=== PATIENT | female | born 1975 | race African-American/Black ===

== ENCOUNTER 2019-06-06 16:32 | Emergency (ER) | payer SELFPAY ==
[~2019-06-06] VITALS: Ht 149.9 cm; Wt 89.0 kg
[~2019-06-06 16:32] MED LIST: ALBUTEROL
[2019-06-06] MEDS ORDERED: SODIUM CHLORIDE 0.9% 1,000 ML IV ONE (23:11)
[2019-06-06 23:50] LABS: BASOPHILS % 0.7 % (0.0-2.0); EOSINOPHILS % 2.1 % (0.0-5.0); HEMATOCRIT. 37.1 % (36.0-48.0); HEMOGLOBIN. 12.6 g/dL (12.0-16.0); LYMPHOCYTES % 35.4 % (20.0-50.0); MEAN CORPUSCULAR HEMOGLOBIN 31.8 pg (28.0-32.0); MEAN CORPUSCULAR VOLUME 93.6 fL (81.0-99.0); MEAN PLATELET VOLUME 7.7 fl (7.4-10.4); MONOCYTES % 11.9 % (2.0-8.0); NEUTROPHILS % 49.9 % (40.0-76.0); PLATELET 371 x1000/uL (130-400); RED BLOOD CELL COUNT 3.97 mill/uL (4.2-5.4); RED CELL DISTRIBUTION WIDTH 13.9 % (11.6-14.6)
[2019-06-06 23:59] LABS: CHLORIDE 105 mEq/L (98-107)
[2019-06-07 04:05] VITALS: BP 120/76
== END 2019-06-07 07:06 | disposition home or self-care (01) ==
LOC: ER 16:32
DX: R42 Dizziness and giddiness (principal); R51 Headache; J45.909 Unspecified asthma, uncomplicated; F17.200 Nicotine dependence, unspecified, uncomplicated
CPT/HCPCS: 36415; 71045; 80053; 81025; 84484; 85025; 93005; 96360; 99284; 99406; J7030

== ENCOUNTER 2019-09-08 08:48 | Emergency (ER) | payer SELFPAY ==
[~2019-09-08] VITALS: Ht 149.9 cm; Wt 101.0 kg
[2019-09-08 09:05] VITALS: BP 141/99
== END 2019-09-08 10:08 | disposition home or self-care (01) ==
LOC: ER 08:57
DX: M54.6 Pain in thoracic spine (principal); J45.909 Unspecified asthma, uncomplicated; F17.210 Nicotine dependence, cigarettes, uncomplicated; Z91.018 Allergy to other foods; W01.0XXA Fall on same level from slipping, tripping and stumbling without subsequent striking against object, initial encounter; Y93.89 Activity, other specified; Y92.010 Kitchen of single-family (private) house as the place of occurrence of the external cause
CPT/HCPCS: 99283

== ENCOUNTER 2019-12-05 11:02 | Emergency (ER) | payer SELFPAY ==
[~2019-12-05] VITALS: Ht 149.9 cm; Wt 101.0 kg
[2019-12-05 11:17] VITALS: BP 101/64
[2019-12-05] MEDS ORDERED: IBUPROFEN 800MG TABLET PO ONE (12:00)
== END 2019-12-05 13:07 | disposition home or self-care (01) ==
LOC: ER 12:41
DX: S70.01XA Contusion of right hip, initial encounter (principal); J45.909 Unspecified asthma, uncomplicated; Z91.018 Allergy to other foods; W01.0XXA Fall on same level from slipping, tripping and stumbling without subsequent striking against object, initial encounter; Y93.89 Activity, other specified; Y92.012 Bathroom of single-family (private) house as the place of occurrence of the external cause
CPT/HCPCS: 73521; 99283